=== PATIENT | male | born 1950 | race Caucasian/White ===

== ENCOUNTER 2019-02-01 19:19 | Inpatient (IN) ==
[2019-02-01] MEDS ORDERED: NS 1,000 ML IV ONE ×2 (19:54→20:06)
[2019-02-01] MEDS ORDERED: ZOSYN 3.375 GM in NS 50 ML IV ONE (19:54)
[2019-02-01] MEDS ORDERED: VANCOMYCIN 1 GM/NS 1 GM/250 ML IVPB IV ONE (19:54)
[2019-02-01 20:12] LABS: INR 1.09; PTT 27.4 Seconds (22.3-41.8)
[2019-02-01 20:13] LABS: ALLEN TEST YES; BE 1.3 mmoll (-3.0-3.0); BLOOD TYPE ARTERIAL; HCO3-(ACT) 25.9 mmoll (20.0-26.0); METHB 0.3 % (0.0-1.5); MODALITY ROOM AIR; O2(CT) 13.9 mL/dL (15.0-23.0); O2HB 93.1 % (95.0-99.0); PCO2(98.6) 34 mmHg (35-45); PO2(98.6) 63 mmHg (60-100); SAMPLE BLOOD; SAO2 94.4 % (95.0-100.0); THB 10.6 g/dL (11.5-17.4); pH(98.6) 7.47 (7.35-7.45)
[2019-02-01] MEDS ORDERED: TYLENOL PO ONE (20:20)
[2019-02-01 20:24] LABS: BASO# 0.01 X1000 (0.0-0.2); BASO% 0.1 % (0.0-0.8); EOS# 0.02 X1000 (0.0-0.7); EOS% 0.2 % (0.0-10.0); HEMATOCRIT 33.2 % (42.0-52.0); HEMOGLOBIN 10.7 g/dL (14.0-18.0); IMM GRAN# 0.02 X1000 (0.0-0.04); IMM GRAN% 0.2 % (0.0-0.5); LYMPH# 0.44 X1000 (1.2-3.4); LYMPH% 4.3 % (20.5-51.1); MCH 30.7 PG (27-31); MCHC 32.2 g/dL (33-37); MCV 95.4 FL (81-99); MONO# 0.53 X1000 (0.11-0.59); MONO% 5.1 % (1.7-9.3); MPV 11.7 FL (7.4-10.4); NEUT# 9.29 X1000 (1.4-6.5); NEUT% 90.1 % (42.2-75.2); PLT 173 X1000 (130-400); RBC 3.48 XMIL (4.7-6.1); RDW 13.2 % (11.5-14.5); WBC 10.31 X1000 (4.8-10.8)
--- NOTE | 2019-02-01 20:31 | Diag Imaging Result Doc PS360 ---
EXAM: CHEST-1 VIEW HISTORY: sepsis TECHNIQUE: Chest single view COMPARISON: 06/30/2018 FINDINGS: Poor inspiratory effort. Heart is mildly enlarged. Sternal wires are present. Small left pleural effusion versus pleural thickening. No consolidation. The overall appearance of the chest is similar to the prior exam. IMPRESSION: Stable chest. Electronically signed by Orlando Spicer 02/01/2019 8:28 PM
[2019-02-01 20:32] LABS: ALB/GLOB RATIO 1.3; ALBUMIN 3.8 g/dL (3.5-5.0); CALCIUM 8.5 mg/dL (8.8-10.2); CREATININE 4.8 mg/dL (0.7-1.2); MAGNESIUM 1.3 mg/dL (1.5-2.7); POTASSIUM 3.4 mmol/L (3.5-5.1); TOTAL BILIRUBIN 1.86 mg/dL (0.20-1.00); TOTAL PROTEIN 6.7 g/dL (6.3-8.3)
--- NOTE | 2019-02-01 21:29 | Diag Imaging Result Doc PS360 ---
EXAM: CT ABD/PELVIS W/IV CONT ONLY HISTORY: RUQ pain, septic TECHNIQUE: CT abdomen and pelvis with intravenous contrast COMPARISON: None. FINDINGS: There is a tiny left pleural effusion. There are several large stones within the gallbladder. There is also fatty infiltration of the liver. Normal spleen, pancreas, and adrenal glands. There is cortical thinning to each kidney. No hydronephrosis. Moderate atherosclerosis. No aortic aneurysm. No bowel obstruction. No abscess. No ascites. The urinary bladder is mildly distended. Normal prostate. Small iliac nodes. IMPRESSION: 1.Tiny left pleural effusion with basilar atelectasis versus a tiny infiltrate 2.Cholelithiasis 3.There is fatty infiltration of the liver 4.Cortical renal thinning This exam was performed using automated exposure control, adjustment of mA or kV according to patient size, and/or use of iterative reconstruction technique. Electronically signed by Orlando Spicer 02/01/2019 9:27 PM
[2019-02-01] MEDS ORDERED: HUMULIN R IV ONE (21:41)
--- NOTE | 2019-02-01 22:00 | PROVIDER DOCUMENTATION ---
This chart was entered by Sarah Fuller Scribe, acting as scribe for Abdulaziz Hernandez MD. HPI-Syncope/Dizziness - General Chief Complaint: SEPSIS ALERT - D Stated Complaint: dizzy Time Seen by Provider: 02/01/19 19:53 Source: patient Allergies/Adverse Reactions: Patient Allergies Allergy/AdvReac Type Severity Reaction Status Date / Time No Known Allergies Allergy Verified 06/30/18 11:52 Home Medications: Home Medication List Medication Instructions Recorded Confirmed Last Taken Type Albuterol Sulfate [Proair Hfa] 2 inhaler IH Q4HR 07/01/18 07/01/18 Unknown History Alprazolam 1 mg PO BID 07/01/18 07/01/18 Unknown History Aspirin [Janay Chewable Aspirin] 81 mg PO DAILY 07/01/18 07/01/18 Unknown History Atorvastatin Calcium 80 mg PO DAILY 07/01/18 07/01/18 Unknown History Baclofen 10 mg PO TID PRN 07/01/18 07/01/18 Unknown History Brompheniramine/Pseudoephed/Dm 10 ml PO Q8HR PRN 07/01/18 07/01/18 Unknown History [Szivbotokg-Jadncptlsue-Dv Syr] Calcium Acetate [Phoslo] 3 cap PO TID 07/01/18 07/01/18 Unknown History Furosemide 40 mg PO BID 07/01/18 07/01/18 Unknown History Hum Insulin NPH/Reg Insulin Hm 20 units BID 07/01/18 07/01/18 Unknown History [Novolin 70-30 100 Unit/ml Vial] Lisinopril 10 mg PO DAILY 07/01/18 07/01/18 Unknown History Metoprolol [Lopressor] 25 mg PO BID 07/01/18 07/01/18 Unknown History Mometasone/Formoterol [Dulera 200 2 puff INH BID 07/01/18 07/01/18 Unknown History Mcg/5 Mcg Inhaler] Iron Carbonyl/Ascorbic Acid 1 ea PO BID #60 tab 07/07/18 Unknown Rx [Icar-C] Nystatin 100,000 unit PO 4XDAY #56 dose 07/07/18 Unknown Rx Omeprazole [Prilosec] 40 mg PO BID #60 capsule. 07/07/18 Unknown Rx - History of Present Illness-Syncope/Dizzy Nature of Presenting Problem: 68yom presents to ED cc dizzy, weakness, fever and chills that started during dialysis today. Pt denies N/V/D or cough. Pt does still make some urin and denies dysuria. Pt has hx of DM. ESRD and HTN. Onset/Duration: reports: gradual Timing: reports: still present, changing over time Position/Activity at time of episode: reports: sitting Symptoms prior to episode: reports: none Loss of Consciousness: no loss of consciousness Current Symptoms: reports: fever, chills, weakness, dizzy Similar symptoms previously: reports: previous diagnosis Recently Seen Here or By Another Healthcare Provider: Yes - Dizziness Severity in ED: reports: mild, moderate Dizziness Related Current/Associated Symptoms: reports: weakness, dizzy Any recent trauma/injury?: reports: none Review of Systems - Adult - REVIEW OF SYSTEMS - ADULT Constitutional: reports: see HPI, chills, fever, fatique Eyes: reports: no symptoms reported Ears, Nose, Mouth & Throat: reports: no symptoms reported Cardiovascular: reports: no symptoms reported Respiratory: reports: no symptoms reported Gastrointestinal: reports: see HPI. denies: diarrhea, nausea, vomiting Genitourinary: reports: no symptoms reported Musculoskeletal: reports: no symptoms reported Integumentary: reports: no symptoms reported Neurological: reports: see HPI, dizziness/vertigo. denies: syncope Psychiatric: reports: no symptoms reported Endocrine: reports: no symptoms reported Hematologic/Lymphatic: reports: no symptoms reported Allergic/Immunologic: reports: no symptoms reported All Other Systems: Reviewed and Negative Past History - Adult - PAST MEDICAL HISTORY-ADULT Review of Records: reports: Nursing Assessment Review, Medications Reviewed, Social history reviewed & non-contributory. Major Childhood Illnesses: reports: denies history Cardiovascular: reports: HTN Respiratory: reports: denies history Gastrointestinal: reports: denies history Obstetrical/Gynecological: reports: denies history Genitourinary: reports: dialysis, ESRD, kidney disease Musculoskeletal: reports: denies history Neurological: reports: denies history Psychiatric: reports: denies history Endocrine/Immune: reports: Diabetes Other Conditions: reports: denies history - IMMUNIZATION STATUS Childhood Immunizations: See Nurse Assessment Flu Vaccine: See Nurse Assessment - FAMILY HISTORY Family History: reviewed, not pertinent - SOCIAL HISTORY Smoking: denies Physical Exam-General - PHYSICAL EXAM-ADULT Initial Vital Signs Reviewed: Yes - CONSTITUTIONAL General Appearance: alert. negative: anxious, combative - EYES Eyes: PERRL/EOMI, pink conjunctivae. negative: photophobia - HEAD, EARS, NOSE, MOUTH & THROAT HENMT: normal ENT inspection. negative: moist mucous membranes (dry), angioedema - NECK Neck: non-tender, full range of motion, supple, normal inspection. negative: Brudzinski's sign, carotid bruit, C-spine tenderness - RESPIRATORY Respiratory: chest non-tender, no pleuratic chest pain, no respiratory distress, no accessory muscle use, rhonchi (scattered). negative: crackles, rales, wheezing - CARDIOVASCULAR Cardiovascular: normal peripheral pulses, no edema, no gallop, no JVD, no murmur , tachycardia. negative: regular rate, rhythm, bradycardia - GASTROINTESTINAL (ABDOMEN) Abdominal Exam: normal bowel sounds, non tender. negative: rigid, rebound, tenderness - LYMPHATIC Lymphatic: no adenopathy. negative: striations - MUSCULOSKELETAL Back Exam: normal inspection. negative: swelling Extremity: normal range of motion, normal inspection, other (shunt in left forearm that has good thrill). negative: deformity - SKIN Integumentary: normal color, warm/dry (hot). 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 negative: facial droop, focal weakness - PSYCHIATRIC Psych/Mental Status: normal mood/affect, normal thought content, normal thought process, oriented x 3. negative: disoriented x 3, anxious, disheveled, depressed affect Progress - PLAN OF CARE/RESULTS Progress/Plan/Lab Results: Vital Signs - 8 hr 02/01/19 19:31 Temperature 101.3 F H Pulse Rate 113 H Respiratory Rate 14 Blood Pressure 98/62 O2 Sat by Pulse Oximetry 95 Laboratory Results - last 24 hr 02/01/19 02/01/19 02/01/19 19:26 19:31 19:31 WBC 10.31 RBC 3.48 L Hgb 10.7 L Hct 33.2 L MCV 95.4 MCH 30.7 MCHC 32.2 L RDW Std Deviation 13.2 Plt Count 173 MPV 11.7 H Immature Gran % (Auto) 0.2 Neut % (Auto) 90.1 H Lymph % (Auto) 4.3 L Wilbarger % (Auto) 5.1 Eos % (Auto) 0.2 Baso % (Auto) 0.1 Immature Gran # (Auto) 0.02 Neut # (Auto) 9.29 H Lymph # (Auto) 0.44 L [place] # (Auto) 0.53 Eos # (Auto) 0.02 Baso # (Auto) 0.01 PT INR PTT (Actin FS) Specimen Type Sample Site pH pCO2 pO2 HCO3 Base Excess Oxyhemoglobin ABG O2 Sat (Calculated) ABG O2 Saturation ABG Carboxyhemoglobin ABG Methemoglobin Bong Test A-a O2 Difference Total Hemoglobin Lactate Blood Gas Modality FiO2 % Sodium 137 Potassium 3.4 L Chloride 95 L Carbon Dioxide 23 L Anion Gap 19 BUN 26 H Creatinine 4.8 H Estimated GFR/1.73 m2 12 BUN/Creatinine Ratio 5 Glucose 339 H POC Glucose 353 H D Calculated Osmolality 292 Calcium 8.5 L Magnesium 1.3 L Total Bilirubin 1.86 H AST 479 H ALT 307 H Alkaline Phosphatase 378 H Creatine Kinase 64 Troponin T Total Protein 6.7 Albumin 3.8 Globulin 2.9 Albumin/Globulin Ratio 1.3 02/01/19 02/01/19 02/01/19 19:31 19:31 19:53 WBC RBC Hgb Hct MCV MCH MCHC RDW Std Deviation Plt Count MPV Immature Gran % (Auto) Neut % (Auto) Lymph % (Auto) Wilbarger % (Auto) Eos % (Auto) Baso % (Auto) Immature Gran # (Auto) Neut # (Auto) Lymph # (Auto) Wilbarger # (Auto) Eos # (Auto) Baso # (Auto) PT 15.0 INR 1.09 PTT (Actin FS) 27.4 Specimen Type ARTERIAL Sample Site R RADIAL pH 7.47 H pCO2 34 L pO2 63 HCO3 25.9 Base Excess 1.3 Oxyhemoglobin 93.1 L ABG O2 Sat (Calculated) 13.9 L ABG O2 Saturation 94.4 L ABG Carboxyhemoglobin 1.10 ABG Methemoglobin 0.3 Bong Test YES A-a O2 Difference 44.0 Total Hemoglobin 10.6 L Lactate 3.40 H Blood Gas Modality ROOM AIR FiO2 % 21.0 Sodium Potassium Chloride Carbon Dioxide Anion Gap BUN Creatinine Estimated GFR/1.73 m2 BUN/Creatinine Ratio Glucose POC Glucose Calculated Osmolality Calcium Magnesium Total Bilirubin AST ALT Alkaline Phosphatase Creatine Kinase Troponin T 0.029 Total Protein Albumin Globulin Albumin/Globulin Ratio Orders Category Date Time Status Cardiac Monitoring DIRECTED Care 02/01/19 19:53 Active IV Insertion ORDERED Care 02/01/19 19:53 Completed Notify MD of + Sepsis Screen NOW Care 02/01/19 19:53 Active Notify Physician As Ordered Care 02/01/19 19:53 Active Straight Catheterization ORDERED Care 02/01/19 20:06 Active CHEST-1 VIEW [RAD] Stat Exams 02/01/19 19:[address] ABD/PELVIS W/IV CONT ONLY [CT] Stat Exams 02/01/19 20:44 Completed ABG [RESP] Routine Lab 02/01/19 19:53 Completed BLOOD CULTURE [BLDCUL] Stat Lab 02/01/19 19:40 Results CBC WITH DIFF [HEME] Stat Lab 02/01/19 19:31 Completed CK PROFILE [SP CHEM] Stat Lab 02/01/19 19:31 Completed COMPREHENSIVE METABOLIC PANEL [CHEM] Stat Lab 02/01/19 19:31 Completed LACTATE, PLASMA [CHEM] Lab 02/01/19 20:00 Uncollected LACTATE, PLASMA [CHEM] Lab 02/01/19 23:00 Uncollected LACTATE, PLASMA [CHEM] Lab 02/02/19 02:00 Uncollected MAGNESIUM [CHEM] Stat Lab 02/01/19 19:31 Completed PROTIME WITH INR [COAG] Stat Lab 02/01/19 19:31 Completed PTT [COAG] Stat Lab 02/01/19 19:31 Completed TROPONIN T Stat Lab 02/01/19 19:31 Completed URINALYSIS W/POSS RFLX CULT [URINALYSIS] Stat Lab 02/01/19 19:53 Uncollected 0.9% Sodium Chloride Inj [Ns] 1,000 ml Med 02/01/19 19:54 Discontinued IV 999 mls/hr 0.9% Sodium Chloride Inj [Ns] 1,000 ml Med 02/01/19 20:06 Discontinued IV 999 mls/hr Acetaminophen [Tylenol] Med 02/01/19 20:20 Discontinued 1,000 mg PO NOW ONE Insulin Human Regular [Humulin R] Med 02/01/19 21:41 Discontinued 10 unit IV NOW ONE Piperacillin/Tazobactam [Zosyn] 3.375 gm Med 02/01/19 19:54 Discontinued 0.9% Sodium Chloride Inj [Ns] 50 ml IV NOW Vancomycin 1 gm/Ns Med 02/01/19 19:54 Discontinued 1 gm in 250 ml IV NOW Oxygen Device Stat Oth 02/01/19 19:53 Completed EKG [EKG] Stat Ther 02/01/19 19:21 Ordered Result Diagrams: 02/01/19 19:31 02/01/19 19:31 - REASSESSMENT Reassessment #1 Time Reassessed: 21:56 Status: improving (Better with IVF, givne Vanco/Zosyn for sepsis. Patient likely has cholecystitis. Patient meets criteria for severe sepsis, but is not in septic shock, and lactate is less than 4, so the 30ml/kg bolus is not indicated at this time. Also given Insulin for hyperglycemia) - EKG 1 Time of EKG reading by physician:: 19:26 EKG Read and Signed by:: Abdulaziz Hernandez EKG Interpretation (*Must complete 3 of following elements*): Abnormal (inferior infarct age undetermined ST & T wave abnormality consider lateral ischemia) Rate: 112 Rhythm: sinus tachycardia QRS: normal [place] Interval: normal - XRAY 1 XRAY: Bilateral XRAY Study: Chest Impression: See EMR Report (IMPRESSION: Stable chest. Electronically signed by Orlando Spicer 02/01/2019 8:28 PM) - CT/MRI 1 CT Study: Abdomen, Pelvis Impression: See EMR Report (IMPRESSION: 1.Tiny left pleural effusion with basilar atelectasis versus a tiny infiltrate 2.Cholelithiasis 3.There is fatty infiltration of the liver 4.Cortical renal thinning This exam was performed using automated exposure control, adjustment of mA or kV according to patient size, and/or use of iterative reconstruction technique. Electronically signed by Orlando Spicer 02/01/2019 9:27 PM) - CONSULTS/PCP/HOSPITALIST Notification #1 *Consult/PCP/Hospitalist*: Marvin Time Discussed: 21:57 Reason/Comments: He'll consult Gutierrez in am, wants me to call surgeon now Consult Disposition: Will see in ED #2 Consult: Sean Time Discussed: 21:57 Consult Disposition: other (Will see in patient in consultation) Departure - Departure Date of Disposition Decision: 02/01/19 Time of Disposition Decision: 21:59 DIAGNOSIS: Severe sepsis with acute organ dysfunction, Type 2 diabetes mellitus with hyperglycemia, with long-term current use of insulin, ESRD on hemodialysis Cholecystitis with cholelithiasis Qualifiers: Cholelithiasis location: gallbladder Cholecystitis acuity: acute Biliary obstru ction: without biliary obstruction Qualified Code(s): K80.00 - Calculus of gallbladder with acute cholecystitis without obstruction Disposition: ADMITTED INPATIENT 09 Certified Medical Emergency: Emergent Condition: Fair Referrals and Follow-Ups: Fernando Akhtar MD [Primary Care Provider] - - Critical Care Note This patient required my direct & personal management of CC.: Yes Total Time (mins): 45 ([facility] system in peril) Critical Care Statement: This patient required my direct personal management to treat or rule out processes, the absence of which, could potentiallly result in sudden, clinically significant life or limb threatening deterioration. Attestation - Physician/ DEANDRE Attestation Patient care was provided by Advanced Practice Provider:: No The physician spent face to face time with patient:: Yes Advanced Practice Provider documentation review:: Supervising physician onsite and consulted in the evaluation and care of this patient. The physician did have a face to face encounter with the patient. This chart was documented by the indicated scribe, (Sarah Fuller Scribe) and accurately reflects the services I performed and decisions made by me, Abdulaziz Hernandez MD, as attested by the provider's signature.
[2019-02-02] MEDS: ZOSYN 2.25 GM in NS 50 ML IV SCH ×3 (01:55→18:56)
[2019-02-02] MEDS: DUONEB (A & A) INH PRN ×4 (03:15→23:15)
[2019-02-02 03:44] LABS: BASO# 0.01 X1000 (0.0-0.2); BASO% 0.1 % (0.0-0.8); EOS# 0.07 X1000 (0.0-0.7); EOS% 0.7 % (0.0-10.0); HEMATOCRIT 29.7 % (42.0-52.0); HEMOGLOBIN 9.3 g/dL (14.0-18.0); IMM GRAN# 0.02 X1000 (0.0-0.04); IMM GRAN% 0.2 % (0.0-0.5); LYMPH# 0.91 X1000 (1.2-3.4); LYMPH% 9.7 % (20.5-51.1); MCH 30.3 PG (27-31); MCHC 31.3 g/dL (33-37); MCV 96.7 FL (81-99); MONO# 0.56 X1000 (0.11-0.59); NEUT# 7.78 X1000 (1.4-6.5); NEUT% 83.3 % (42.2-75.2); PLT 156 X1000 (130-400); RBC 3.07 XMIL (4.7-6.1); RDW 13.2 % (11.5-14.5); WBC 9.35 X1000 (4.8-10.8)
[2019-02-02 04:23] LABS: CALCIUM 7.8 mg/dL (8.8-10.2); POTASSIUM 3.4 mmol/L (3.5-5.1)
[2019-02-02 04:32] LABS: CREATININE 5.5 mg/dL (0.7-1.2)
[2019-02-02] MEDS: HUMULIN R SUBQ SCH ×4 (06:32→21:55)
--- NOTE | 2019-02-02 07:14 | EKG Report ---
Test Performed on : 02/01/2019 7:24:55 PM Test Reason : DIZZINESS Blood Pressure : / mmHG Vent. Rate : 112 BPM Atrial Rate : 112 BPM P-R Int : 172 ms QRS Dur : 094 ms QT Int : 328 ms P-R-T Axes : 011 -05 129 degrees QTc Int : 447 ms Sinus tachycardia. Inferior infarct , age undetermined ST & T wave abnormality, consider lateral ischemia Abnormal ECG When compared with ECG of 05-JUL-2018 07:14, premature ventricular complexes. are no longer present Inferior infarct is now present T wave inversion more evident in Lateral leads Unconfirmed Result
--- NOTE | 2019-02-02 07:59 | Diag Imaging Result Doc PS360 ---
US ABDOMEN-COMPLETE - 02/02/2019 INDICATION: abdominal pain COMPARISON: CT from 02/01/2019 FINDINGS: The gallbladder is packed with shadowing gallstones. No surrounding free fluid. Common bile duct measures 6 mm. The pancreas is mostly obscured. The liver, spleen, and both kidneys are normal. Aorta, IVC, and main portal vein are patent. The spleen measures 11.6 x 4.5 cm. IMPRESSION: Gallbladder packed with gallstones. Electronically signed by Ashish Scott 02/02/2019 7:56 AM
--- NOTE | 2019-02-02 10:33 | HISTORY AND PHYSICAL ---
PRIMARY CARE PHYSICIAN: Dr. Akhtar CHIEF COMPLAINT: Fever, chills, abdominal pain x1 day. HISTORY OF PRESENT ILLNESS: A 68-year-old, morbidly obese male with a history of end-stage renal disease, on hemodialysis on Thursday, , Thursday, diabetes mellitus type 2, hypertension, and coronary artery disease, who presented to the emergency department with a complaint of having fever, chills, and right upper quadrant/epigastric pain after he had dialysis. He states that the pain was worsening, and subsequently he had come to the emergency department. In the ED, he was evaluated. He had imaging done, which did show cholelithiasis, and there was suspicion of possible cholecystitis. Due to his presenting symptoms, he will need admission for further management. At the time of my examination, the patient denied any headache, nausea, vomiting, diarrhea, chest pain, shortness of breath, but complained of right upper quadrant/epigastric pain that was intermittent, and also having fever earlier in the day. PAST MEDICAL HISTORY: Includes diabetes mellitus type 2, end-stage renal disease, hypertension, morbid obesity, hyperlipidemia, coronary artery disease, anemia of chronic disease. PAST SURGICAL HISTORY: Dialysis catheter, coronary bypass. ALLERGIES: No known drug allergies. CURRENT MEDICATIONS: Albuterol inhaler every 4 hours, Xanax 1 mg p.o. b.i.d., aspirin 81 mg p.o. daily, atorvastatin 80 mg p.o. daily, baclofen 10 mg p.o. b.i.d., Lasix 40 mg p.o. b.i.d., Humulin NPH 70/30, 20 units b.i.d. subcutaneously, lisinopril 10 mg p.o. daily, metoprolol 25 mg p.o. b.i.d., omeprazole 40 mg p.o. b.i.d. SOCIAL HISTORY: No history of smoking, alcohol, or illicit drug use. FAMILY HISTORY: No history of coronary disease. REVIEW OF SYSTEMS: A 14-point review of systems is as per HPI, other systems negative. PHYSICAL EXAMINATION: GENERAL: Cooperative, friendly male. He is resting more comfortably now. VITAL SIGNS: Temperature 101.3, pulse 113, respirations 14, blood pressure 98/62. HEENT: Atraumatic, normocephalic. Extraocular movements intact. PERRLA. NECK: No masses. CHEST: Clear to auscultation. CARDIOVASCULAR: Regular rate and rhythm. ABDOMEN: Soft. Right upper quadrant/epigastric tenderness. EXTREMITIES: No edema. NEUROLOGIC: He is awake, alert, oriented x3. GENITOURINARY: No bladder distention. SKIN: Warm. IMAGING AND LABORATORY DATA: WBC is 10.31, hemoglobin 10.7, hematocrit 33.2, platelets 173,000. Sodium 137, potassium 3.4, chloride 95, CO2 is 23, BUN is 26, creatinine 4.8, glucose 339. AST 479, ALT 307, alkaline phosphatase 378. CT of the abdomen and pelvis shows cholelithiasis. ASSESSMENT: A 68-year-old, obese male with history of end-stage renal disease, diabetes mellitus type 2, hypertension, and hyperlipidemia, who had presented to the emergency department with a one- day history of having fever, chills, and abdominal pain after he had dialysis. He was evaluated in the emergency department. He had imaging done, which did show cholelithiasis. Subsequently, he will require admission for further management. 1. Fever, chills. 2. Cholelithiasis with suspected cholecystitis. 3. End-stage renal disease. 4. Diabetes mellitus type 2. 5. Hypertension. PLAN: 1. Will admit the patient to medical floor with telemetry. 2. Will keep the patient n.p.o. 3. Will check blood cultures and start the patient on empiric antibiotics. 4. Will consult General Surgery for further evaluation of symptomatic cholelithiasis. 5. Will consult Nephrology for dialysis. 6. Will monitor blood glucose, and put the patient on glycemic protocol. 7. Will monitor blood pressures and add hypertensive agent. 8. Will put the patient on DVT prophylaxis with SCDs. 9. Will continue to follow and reassess and make further recommendations based on the patient's clinical course. cc: Nirav Wong MD MTDD
--- NOTE | 2019-02-02 14:37 | PROGRESS NOTE ---
DATE: 02/02/2019 SUBJECTIVE: The patient reports feeling fine. Patient reports having had fever last night. Denies any fever or chills now. No abdominal pain. OBJECTIVE: Vital Signs: Temperature 98.5 degrees, heart rate 92, respiratory rate 16, blood pressure. 117/59, O2 saturation 98% on room air. General: This is a morbidly obese, 68-year-old, male lying in bed, in no acute distress. HEENT: Head is normocephalic, atraumatic. Neck: No JVD noted. No carotid bruits. No lymphadenopathy. No thyromegaly. Cardiovascular: S1 and S2 heard. No murmurs, gallops or rubs. Regular rate and rhythm. Respiratory: Clear bilaterally to auscultation. No work of breathing. Not using accessory muscles. Abdomen: Soft. A little bit tender to palpation. The right upper quadrant but there is no signs of peritoneal irritation. Extremities: No clubbing, cyanosis, or edema. Peripheral pulses present in both legs. Neurological: Patient alert oriented x3. Moves 4 extremities. LABORATORY DATA: White cell count 9.35, hemoglobin 9.3, hematocrit 39.7, platelets 156,000. BMP remarkable for potassium 3.4, glucose 203. ASSESSMENT AND PLAN: 1. Fever and chills/cholelithiasis suspecting cholecystitis. Patient came to the emergency department because he was having fever and chills while he was having dialysis. The ultrasound shows cholelithiasis. There is no description for any inflammation of the gallbladder wall. In any case, the patient is on antibiotics. In this case, Zosyn renally dosed. Having all that, this patient has both blood cultures for gram-negative bacteria. So, at this point, we are going to continue with the same management. We will repeat blood cultures. Chest x-ray from before and the day after. We will continue to monitor this patient closely. 2. End-stage renal disease. Patient on dialysis. Dr. Whitley is following this patient. 3. Diabetes mellitus type 2. We will continue with sliding scale insulin and Accu-Cheks before meals and also at bedtime. 4. Hypertension will continue home medications. cc: Ric Gaston MD
[2019-02-02] MEDS ORDERED: FENTANYL ONE (15:42)
[2019-02-02] MEDS ORDERED: QUELICIN (DOSE) ONE (15:43)
[2019-02-02] MEDS ORDERED: XYLOCAINE-MPF 2% ONE (15:43)
[2019-02-02] MEDS ORDERED: DIPRIVAN 1% ONE (15:43)
[2019-02-02] MEDS ORDERED: ROBINUL ONE ×2 (15:43→16:02)
[2019-02-02] MEDS ORDERED: MARCAINE 0.25% PF/EPI 1:200,000 ONE (15:44)
[2019-02-02] MEDS ORDERED: SODIUM CHLORIDE 0.9% ONE (15:44)
[2019-02-02] MEDS ORDERED: LR 1,000 ML ONE (15:44)
[2019-02-02] MEDS ORDERED: STERILE WATER INJ. ONE (16:02)
[2019-02-02] MEDS ORDERED: ZOFRAN ONE (16:02)
[2019-02-02] MEDS ORDERED: NORCURON ONE (16:02)
[2019-02-02] MEDS ORDERED: SODIUM CHLORIDE 0.9% 10 ML ONE (16:31)
[2019-02-02] MEDS ORDERED: NEO-SYNEPHRINE ONE (16:31)
[2019-02-02] MEDS ORDERED: NEOSTIGMINE ONE (16:32)
[2019-02-02] MEDS ORDERED: BRIDION ONE (16:56)
[2019-02-02] MEDS ORDERED: OFIRMEV 1000 MG/ISOTONIC SOLN 1,000 MG/100 ML BOTTLE ONE (17:42)
[2019-02-02] MEDS: MORPHINE ONE ×3 (17:50→18:00)
[2019-02-02] MEDS: NORCO-10 PO PRN ×2 (18:55→23:59)
[2019-02-02] MEDS: NS 1,000 ML IV SCH (19:00)
[2019-02-02] MEDS: PERIDEX MT SCH (20:53)
--- NOTE | 2019-02-02 22:21 | OPERATIVE NOTE ---
PROCEDURE DATE: 02/02/2019 PREOPERATIVE DIAGNOSIS: Acute cholecystitis with cholelithiasis. POSTOPERATIVE DIAGNOSIS: Acute cholecystitis with cholelithiasis. PRINCIPAL PROCEDURE: Laparoscopic cholecystectomy without intraoperative cholangiogram. SURGEON: Krystle Estrada MD. REFINERY OPERATOR COKING: Kenyetta. ANESTHESIA: General in addition to local anesthetic. ESTIMATED BLOOD LOSS: 250 mL. DRAINS: Two #10 flat Bhavesh-Dinh drain right upper quadrant of the abdomen. INDICATIONS: Mr. Ramón Moreira is a 68-year-old morbidly obese white male with end-stage renal disease requiring hemodialysis. He presented to the emergency department with chest and epigastric pain. A CT scan suggested acute cholecystitis as did an ultrasound, and cholecystectomy was recommended. FINDINGS: This was a very difficult case because of the patient's weight but also because the gallbladder was hidden by greater omentum adhesed to it. He had an enlarged fatty infiltrated liver. The gallbladder was chronically inflamed, thick walled and had large stones within it. The triangle of Calot was very difficult to dissect. Because of limited exposure and the inflammation, we were unable to do a cholangiogram, but I stayed close to the gallbladder, and I felt I did it safely. We did leave a drain. DESCRIPTION OF PROCEDURE: The patient was brought to the operating room, placed supine, received general anesthesia and was intubated. Abdomen was prepped and draped within the sterile field. I made a longitudinal incision above the umbilicus with a 15 blade scalpel. Veress needle was introduced through this incision. Pneumoperitoneum was established. I placed an 11 mm trocar through this incision into the abdomen. The camera was placed through this port, and the abdomen was explored for injury. There was none. Three other trocars were placed along the right costal margin under direct vision of the camera. I placed an 11 mm trocar just to the right of the midline and two 5 mm trocars in our midclavicular and anterior axillary lines. Through our most lateral port, I initially had to take down the greater omentum, which was adhesed to the edge of the right lobe of the liver and also encircling the gallbladder. I could not even see the gallbladder initially without some dissection of the greater omentum. We had to place an extra trocar, 11 mm trocar, left side of abdomen so that I could use a fan retractor also for exposure. We slowly but surely got exposure to the underside of the gallbladder. I had to use a pigtail retractor within the fundus of the gallbladder to retract it superiorly along with the right lobe of the liver. I used the fan retractor. I used blunt dissection, and we identified the cystic duct initially. I placed 2 clips proximally and 1 clip distally and divided the cystic duct, identified the cystic artery. A clip was placed distally and 2 proximally. It was divided. I used spatula cautery to remove the gallbladder from the liver bed and then used an endobag to remove the gallbladder through our 11 mm port site. I did leave some SurgiSeal in the gallbladder bed because of some oozing. We did lose 250 mL of blood during our dissection, but we felt that all bleeding was controlled at the end of the procedure. The liver appeared to be well perfused. We thoroughly irrigated out the area of operation. The irrigation was removed with suction. I did leave a 10 flat Bhavesh-Dinh drain in the right upper quadrant. It was brought out through our most lateral 5 mm trocar site. I secured it to the skin with a 2-0 nylon stitch. All trocars were removed under direct vision of the camera. The pneumoperitoneum was allowed to dissipate. I used 0 Vicryl [id number] stitches to reapproximate the fascia at the umbilicus, and I closed all skin with a skin clip medical registrar. Dressings were applied. He tolerated the procedure well with plans for him to go the recovery room and then be readmitted to his room. cc: Krystle Estrada MD
[2019-02-03] MEDS: ZOSYN 2.25 GM in NS 50 ML IV SCH ×3 (01:43→09:44)
[2019-02-03] MEDS: DUONEB (A & A) INH PRN ×2 (03:25→15:22)
[2019-02-03] MEDS ORDERED: NS 2,000 ML MISC PRN (06:13)
[2019-02-03] MEDS ORDERED: TIGHT: 0.2 ML/HR FOR DIALYSIS MISC PRN (06:13)
[2019-02-03] MEDS ORDERED: HEPARIN IV PRN ×2 (06:13→09:30)
[2019-02-03 06:30] LABS: BASO# 0.02 X1000 (0.0-0.2); BASO% 0.2 % (0.0-0.8); EOS% 1.2 % (0.0-10.0); HEMATOCRIT 27.8 % (42.0-52.0); HEMOGLOBIN 8.5 g/dL (14.0-18.0); IMM GRAN# 0.02 X1000 (0.0-0.04); IMM GRAN% 0.2 % (0.0-0.5); LYMPH# 0.56 X1000 (1.2-3.4); LYMPH% 6.7 % (20.5-51.1); MCH 30.2 PG (27-31); MCHC 30.6 g/dL (33-37); MCV 98.9 FL (81-99); NEUT# 7.15 X1000 (1.4-6.5); NEUT% 85.7 % (42.2-75.2); PLT 154 X1000 (130-400); RBC 2.81 XMIL (4.7-6.1); RDW 13.3 % (11.5-14.5); WBC 8.35 X1000 (4.8-10.8)
[2019-02-03] MEDS: HUMULIN R SUBQ SCH ×4 (06:34→22:25)
[2019-02-03 06:47] LABS: CALCIUM 7.1 mg/dL (8.8-10.2); CREATININE 7.2 mg/dL (0.7-1.2)
[2019-02-03 07:13] LABS: MONO 2 % (1-9); SEGS 96 % (42-75)
[2019-02-03] MEDS: PERIDEX MT SCH ×2 (08:22→22:25)
[2019-02-03] MEDS: NS 1,000 ML IV SCH ×2 (09:45→18:48)
[2019-02-03] MEDS ORDERED: TESSALON PO PRN (10:37)
[2019-02-03] MEDS ORDERED: MAXIPIME 1 GM in NS 50 ML IV SCH (11:15)
--- NOTE | 2019-02-03 15:34 | PROGRESS NOTE ---
DATE: 02/03/2019 SUBJECTIVE: The patient reports feeling fine now but he has spiked fever this morning at 100.4 degrees. No other complaints noted. OBJECTIVE: Vital signs: Temperature 100.4 degrees, heart rate 114, respiratory rate 20, blood pressure 100/50, O2 saturation 100% on 2 L nasal cannula. General: This is a 68-year-old male, lying in bed, in no acute distress. Cardiovascular: S1, S2 heard. No murmurs, gallops, or rubs. Regular rate and rhythm. Respiratory: Clear bilaterally to auscultation. No work of breathing. Not using accessory muscles. Abdomen: Soft. Nondistended. Tender to palpation in the right upper quadrant. Extremities: No clubbing, cyanosis, or edema. Peripheral pulses present in both legs. Neurological: Patient alert and oriented x3. Moves 4 extremities. LABORATORY DATA: Reviewed and white cell count is normal. ASSESSMENT AND PLAN: 1. Acute cholecystitis status post laparoscopic cholecystectomy. At this point, the patient is still spiking fever. We have consulted ID, Dr. Andrés Dalton, who has changed antibiotics from Zosyn to cefepime. We will continue with the same management. We are going to check blood cultures tomorrow, make sure that patient's infection is resolving. He had a laparoscopic cholecystectomy. At this point, we will continue with the same management. 2. End-stage renal disease. Patient is receiving dialysis. Dr. Whitley following this patient. 3. Diabetes mellitus type 2. We will continue with sliding scale insulin and Accu-Chek before meals and also at bedtime. 4. Hypertension. We will continue with home medications. 5. Disposition. On this patient with negative bacteremia, we will repeat blood cultures tomorrow. We will continue to monitor this patient closely. cc: Ric Gaston MD MTDD
[2019-02-03] MEDS ORDERED: MAXIPIME 1 GM in NS 50 ML IV ONE (16:00)
--- NOTE | 2019-02-03 16:32 | NEPHROLOGY PROGRESS NOTE ---
DATE: 02/03/2019 SUBJECTIVE: He had a cholecystectomy yesterday. He has a drain in place. He still is "sore". No vomiting, nausea. He has not had a bowel movement yet. OBJECTIVE: Vital Signs: Blood pressure 92/50, heart rate 114, respirations 20, temperature 100.4 degrees. Generally: Obese white male, no acute distress. Skin: Warm and dry. Conjunctivae are pink. Oropharynx is moist. Neck: Neck veins are not distended. Heart: Regular. No gallops. No rubs. Lungs: Equal. No crackles. Abdomen: Soft, nontender. There is a SARITA drain in the right upper quadrant. Bowel sounds are present. Extremities: Trace edema. No clubbing or cyanosis. IMPRESSION: 1. Chronic kidney disease 5D. Dialysis today using his routine outpatient prescription except for change to a 3K bath. Electrolytes/acid base in target. 2. Anemia. Hemoglobin 8.5 following surgery. Follow without transfusion at this time. 3. Gram-negative sepsis. ID and sensitivity are pending. Continue Tee. cc: Arthur Whitley MD
--- NOTE | 2019-02-03 18:34 | PROGRESS NOTE ---
DATE: 02/03/2019 SUBJECTIVE: Mr. Moreira is postop day 1 from laparoscopic cholecystectomy without intraoperative cholangiogram. It was a difficult dissection because of chronic inflammation and acute inflammation. We left a drain. The drain is draining no bile, but serosanguineous fluid. Clinically, he states he feels better. He did get dialyzed today. His white blood cell count is normal. Hematocrit is 28%. PLAN: We will continue his SARITA drain for now. He has been given liquids as a diet. cc: Krystle Estrada MD
--- NOTE | 2019-02-03 18:47 | INFECTIOUS DISEASE CONSULT REP ---
DATE: 02/03/2019 CONCLUSION: The patient has a gram-negative meagan bacteremia which most likely originates from his acute cholecystitis. RECOMMENDATIONS: I have switched the patient from Zosyn to cefepime pending culture results. DISCUSSION: The patient told me that he, approximately 3 days ago, started having chills and epigastric pain. He came to the hospital. On the ultrasound of the abdomen, the patient was found to have a gallbladder packed with stones. CT scan of the abdomen showed cholelithiasis, fatty liver, renal cortical thinning and a tiny left pleural effusion with basilar atelectasis versus a tiny infiltrate. The CBC shows a white count of 8350, hemoglobin is 8.5, platelet count is 154,000, creatinine is 7.2. GFR is 8. The patient is status post laparoscopic cholecystectomy. PAST MEDICAL HISTORY/REVIEW OF SYSTEMS: Eyes and Ears: The patient does not have any trouble seeing or hearing. Neck: No stiffness. Respiratory: No cough or shortness of breath. Cardiac: No chest pain or palpitations. GI: The patient was having epigastric pain, but he did not have any nausea or vomiting. He normally passes his stools every other day. Urinary tract: The patient has a decreased frequency of urinating most likely because he has end-stage renal disease and he is on dialysis, but he told me when he does urinate he passes a lot of urine. Bones, joints, muscles: No joint swelling or muscle aching. Endocrine: Patient is diabetic but not but he does not have thyroid disease. PREVIOUS HOSPITALIZATIONS AND OPERATIONS: He has had surgery on his left arm to form an AV fistula. He has had coronary artery bypass grafting. He has had a cyst removed from his left foot. MEDICAL DISEASES: Positive for end-stage renal disease, diabetes mellitus, hypertension, and coronary artery disease. Infectious disease history is negative for pneumonia and UTI. Also, hyperlipidemia and gastroesophageal reflux disease. FAMILY HISTORY: Positive for diabetes mellitus and cancer. SOCIAL HISTORY: [place] . He lives alone. He does not have any pets. He does not smoke cigarettes, drink alcoholic beverages or abuse drugs. He is a retired welder machine operator. ALLERGIES: He has no known drug allergies. MEDICATIONS: Taken at home include ProAir, alprazolam, atorvastatin, furosemide, insulin, hydrocodone, lisinopril, metoprolol and Prilosec. PHYSICAL EXAMINATION: Vital Signs: Temperature maximum was 100.4, pulse is 114, respirations 20, blood pressure 92/50. The patient weighs 280 pounds. General: This is an obese, elderly male. He is status post laparoscopic cholecystectomy performed. Head/eyes/ears/nose/throat: He can hear my spoken words and see near objects. There is no drainage from the nose or ears. Neck: No meningismus. Lungs: Clear to auscultation. Cardiovascular: Regular heart rate. Abdomen: Soft. It is nontender to light palpation. All the abdominal incisions have a dressing on them. The dressings are intact. Neurologic: The patient is awake. He can move his extremities. There is no tremor. His memory as regarding his medical history seemed to be intact. Integument: No rash noted. Thank you for the consult. cc: Andrés Dalton MD
[2019-02-03] MEDS: NORCO-10 PO PRN (22:25)
[2019-02-04 06:23] LABS: BASO# 0.01 X1000 (0.0-0.2); BASO% 0.1 % (0.0-0.8); EOS# 0.39 X1000 (0.0-0.7); EOS% 4.6 % (0.0-10.0); HEMATOCRIT 27.3 % (42.0-52.0); HEMOGLOBIN 8.3 g/dL (14.0-18.0); IMM GRAN# 0.03 X1000 (0.0-0.04); IMM GRAN% 0.4 % (0.0-0.5); LYMPH# 1.06 X1000 (1.2-3.4); LYMPH% 12.6 % (20.5-51.1); MCH 30.3 PG (27-31); MCHC 30.4 g/dL (33-37); MCV 99.6 FL (81-99); MONO# 0.82 X1000 (0.11-0.59); MONO% 9.7 % (1.7-9.3); MPV 11.4 FL (7.4-10.4); NEUT# 6.13 X1000 (1.4-6.5); NEUT% 72.6 % (42.2-75.2); PLT 164 X1000 (130-400); RBC 2.74 XMIL (4.7-6.1); RDW 13.7 % (11.5-14.5); WBC 8.44 X1000 (4.8-10.8)
[2019-02-04 06:41] LABS: CALCIUM 7.4 mg/dL (8.8-10.2); POTASSIUM 3.4 mmol/L (3.5-5.1)
[2019-02-04 06:42] LABS: CREATININE 5.7 mg/dL (0.7-1.2)
[2019-02-04] MEDS: HUMULIN R SUBQ SCH ×4 (06:56→22:08)
[2019-02-04] MEDS: PERIDEX MT SCH ×2 (09:39→22:07)
[2019-02-04] MEDS ORDERED: EPOGEN SUBQ ONE (09:49)
--- NOTE | 2019-02-04 10:56 | PROGRESS NOTE ---
DATE: 02/04/2019 Mr. Moreira is now postop day 2 from a laparoscopic cholecystectomy without intraoperative cholangiogram. I left a SARITA drain at the time of surgery. It is draining serosanguineous fluid. No bile. He is sitting up. Clinically, he says he feels better. He is tolerating liquids, and will advance his diet to a renal diet. He is receiving IV antibiotics for cultures positive for Klebsiella pneumonia. cc: Krystle Estrada MD
--- NOTE | 2019-02-04 16:42 | PROGRESS NOTE ---
DATE: 02/04/2019 SUBJECTIVE: Patient reports feeling fine. Denies any fever or chills but last night, around 11 p.m., he had a 100.5 fever. OBJECTIVE: Vital Signs: Temperature 98.1 degrees, heart rate 89, respiratory rate 17, blood pressure 115/66, O2 saturation 92% on 2 L nasal cannula. General Examination: This is a 68-year- old, male, lying in bed, in no acute distress. Cardiovascular Examination: S1 and S2 heard. No murmurs, gallops, or rubs. Regular rate and rhythm. Respiratory Examination: Clear bilaterally to auscultation. No work of breathing or using accessory muscles. Abdomen: A little bit tender to palpation in the right lower quadrant. No signs of peritoneal irritation. Extremities: No clubbing, cyanosis, or edema. Peripheral pulses present in both legs. Neurological Examination: The patient is alert and oriented x3. Moves 4 extremities. ASSESSMENT AND PLAN: 1. Acute cholecystitis, status post laparoscopic cholecystectomy. The patient is clinically better. Spiked a fever yesterday, last night. Dr. Dalton has decided to continue with cefepime. Blood culture has been drawn today and the plan is to keep this patient until Thursday to see that blood cultures are negative. Then he will be discharged on Levaquin orally. 2. End-stage renal disease. Patient is receiving usual dialysis. Dr. Whitley is monitoring this patient. 3. Diabetes mellitus type 2. We will continue with sliding scale insulin. Accu-Chek before meals and also at bedtime. 4. Hypertension. Blood pressure is under control. We will continue with the same management. 5. Disposition. As we mentioned before, we will continue to monitor this patient closely. We will keep this patient until next Thursday. If blood cultures are negative, we will discharge him that day. cc: Ric Gaston MD
--- NOTE | 2019-02-04 17:11 | INFECTIOUS DISEASE PROGRESS NO ---
DATE: 02/04/2019 PRESENT ILLNESS: The patient has a Klebsiella bacteremia which most likely originated from his acute cholecystitis. MEDICATIONS: The patient was on Zosyn, and now he is on cefepime 1 g IV after each hemodialysis. PHYSICAL EXAMINATION: Vital Signs: Temperature is 99.5 degrees, pulse 108, respirations 22, blood pressure 125/57. General: This is an obese, elderly male. He is in no acute distress. Head/eyes/ears/nose/throat: He can hear my spoken words and see near objects. He does not have any white coating on his tongue. Neck: He is not having any neck pain when he moves his head or neck. Lungs: Clear to auscultation. Cardiovascular: Regular heart rate. Abdomen: The patient's abdomen is soft. Bowel sounds are present. All the small incisions have a dressing on them. He has a drain in the right upper part of the abdomen. Extremities: Patient has an AV fistula in his left arm, which is what he is dialyzed with. Neurologic: The patient is alert. He can move his extremities. There is no tremor. He is able to ambulate. Integument: No rash. COMORBIDITIES: The patient has end-stage renal disease and he is on hemodialysis, diabetes mellitus and obesity. ASSESSMENT AND PLAN: The patient is bacteremic with Klebsiella which originated from the patient's acute cholecystitis. We have ordered repeat blood cultures today, and if they remain negative, then the patient will be discharged on February 07 on Levaquin 250 mg oral daily for a total of 14 days. Day 1 of treatment with the patient's antibiotics will be the first day that the repeat blood cultures are sterile. cc: Andrés Dalton MD
--- NOTE | 2019-02-04 17:17 | NEPHROLOGY PROGRESS NOTE ---
DATE: 02/04/2019 SUBJECTIVE: He states he is feeling very well today. He has less abdominal tenderness. He is ready to eat more and get out of bed. OBJECTIVE: Vital Signs: Blood pressure 125/57, heart rate 108, respirations 22, temperature 99.5 degrees, T-max 100.5 degrees. General: No acute distress. Skin: Warm and dry. Neck: Neck veins are not visible. Heart: Regular. No gallops. Lungs: Equal. No crackles. Abdomen: Mildly tender. Nondistended. Bowel sounds are present. Extremities: No edema, clubbing, or cyanosis. IMPRESSIONS: 1. Chronic kidney disease 5D. He had his routine dialysis yesterday. Electrolytes, acid-base, and volume status all acceptable. 2. Anemia. Hemoglobin has stabilized to 8.3. He does not meet criteria for transfusion. We will continue his erythropoietin while he is an inpatient. No other changes. cc: Arthur Whitley MD
[2019-02-05] MEDS: HUMULIN R SUBQ SCH ×4 (06:01→22:04)
[2019-02-05] MEDS ORDERED: NS 2,000 ML MISC PRN (06:07)
[2019-02-05] MEDS ORDERED: HEPARIN IV PRN (06:07)
[2019-02-05 06:32] LABS: CALCIUM 7.6 mg/dL (8.8-10.2); POTASSIUM 3.5 mmol/L (3.5-5.1)
[2019-02-05 06:36] LABS: BASO% 0.4 % (0.0-0.8); EOS% 6.7 % (0.0-10.0); HEMOGLOBIN 8.5 g/dL (14.0-18.0); IMM GRAN% 0.6 % (0.0-0.5); LYMPH# 0.95 X1000 (1.2-3.4); LYMPH% 11.8 % (20.5-51.1); MCHC 30.4 g/dL (33-37); MCV 98.9 FL (81-99); MONO# 0.62 X1000 (0.11-0.59); MONO% 7.7 % (1.7-9.3); MPV 10.9 FL (7.4-10.4); NEUT# 5.85 X1000 (1.4-6.5); NEUT% 72.8 % (42.2-75.2); PLT 203 X1000 (130-400); RBC 2.83 XMIL (4.7-6.1); RDW 13.4 % (11.5-14.5); WBC 8.04 X1000 (4.8-10.8)
[2019-02-05 06:37] LABS: BASO# 0.03 X1000 (0.0-0.2); EOS# 0.54 X1000 (0.0-0.7); IMM GRAN# 0.05 X1000 (0.0-0.04)
[2019-02-05 06:40] LABS: CREATININE 7.7 mg/dL (0.7-1.2)
--- NOTE | 2019-02-05 14:10 | PROGRESS NOTE ---
DATE: 02/05/2019 SUBJECTIVE: Patient reports feeling fine. Denies any fever or chills. Here in the computer last time he had fever was 2 days ago at night. OBJECTIVE: Vital Signs: Temperature 99.1, heart rate 89, respiratory rate 18, blood pressure 119/67, O2 saturation 96% on 2 L nasal cannula. General: This is a chronically ill-appearing 68- year-old male lying in bed in no acute distress. Cardiovascular: S1, S2 heard. No murmurs, gallops, or rubs. Regular rate and rhythm. Respiratory: Clear bilaterally to auscultation. No work of breathing or using accessory muscles. Abdomen: Soft, a little bit distended but mildly tender to palpation in the right upper quadrant, no signs of peritoneal irritation. ASSESSMENT AND PLAN: 1. Acute cholecystitis status post laparoscopy cholecystectomy. Clinically continues to improve. No fever the last 48 hours. Patient is on cefepime right now. Blood cultures isolated Klebsiella pneumonia so will continue with the same antibiotic and if Thursday blood cultures negative will discharge this patient on Levaquin. 2. End-stage renal disease on dialysis Dr. Whitley following this patient. 3. Diabetes mellitus type 2. Will continue with sliding scale insulin, Accu-Chek before meals and also bedtime. 4. Hypertension. Blood pressure is under control. We will continue with same management. 5. Disposition. As we mentioned before, if blood cultures negative Thursday patient will be discharged. cc: Ric Gaston MD
[2019-02-05] MEDS: PERIDEX MT SCH ×2 (14:49→22:04)
--- NOTE | 2019-02-05 19:04 | NEPHROLOGY PROGRESS NOTE ---
DATE: 02/05/2019 SUBJECTIVE: He is on dialysis currently. His drain has been removed. He is eating okay and he has been out of bed. No shortness of breath. States he is feeling better. OBJECTIVE: Vital Signs: Blood pressure 122/8, heart rate 93, respiration 18, afebrile. T-max 99.5 degrees. General: No acute distress. Skin: Warm and dry. Eyes: Conjunctivae are pink. Neck: Neck veins are not distended. Heart: Regular. Lungs: Equal. No crackles. Abdomen: Soft, nontender. Bowel sounds present. Extremities: No edema, clubbing or cyanosis. IMPRESSION: 1. Chronic kidney disease 5 D. Hemodialysis today. She is currently receiving 3 potassium bath with 2 liter ultrafiltration volume. Blood pressure is in target. 2. Electrolytes/acid base in target. 3. Anemia is below target, but stable. He received a single dose of erythropoietin. cc: Arthur Whitley MD
[2019-02-06 06:09] LABS: CALCIUM 8.5 mg/dL (8.8-10.2); POTASSIUM 3.3 mmol/L (3.5-5.1)
[2019-02-06 06:11] LABS: BASO# 0.03 X1000 (0.0-0.2); BASO% 0.4 % (0.0-0.8); EOS# 0.44 X1000 (0.0-0.7); EOS% 6.1 % (0.0-10.0); HEMATOCRIT 29.3 % (42.0-52.0); HEMOGLOBIN 8.8 g/dL (14.0-18.0); IMM GRAN% 1.4 % (0.0-0.5); LYMPH# 0.96 X1000 (1.2-3.4); LYMPH% 13.4 % (20.5-51.1); MCH 29.7 PG (27-31); MONO# 0.58 X1000 (0.11-0.59); MONO% 8.1 % (1.7-9.3); MPV 10.7 FL (7.4-10.4); NEUT# 5.08 X1000 (1.4-6.5); NEUT% 70.6 % (42.2-75.2); PLT 231 X1000 (130-400); RBC 2.96 XMIL (4.7-6.1); RDW 13.6 % (11.5-14.5); WBC 7.19 X1000 (4.8-10.8)
[2019-02-06 06:14] LABS: CREATININE 5.3 mg/dL (0.7-1.2)
[2019-02-06] MEDS: HUMULIN R SUBQ SCH ×4 (07:24→20:50)
[2019-02-06] MEDS: PERIDEX MT SCH ×2 (09:03→20:50)
--- NOTE | 2019-02-06 11:33 | INFECTIOUS DISEASE PROGRESS NO ---
DATE: 02/06/2019 PRESENT ILLNESS: The patient has a Klebsiella bacteremia, which I think originated from his acute cholecystitis. MEDICATIONS: The patient currently is on cefepime 1 gram after each hemodialysis. PHYSICAL EXAMINATION: Vital Signs: Temperature is 98.8 degrees, pulse 79, respirations 17, blood pressure 148/76. General: This is an obese, elderly male. He is in no acute distress. HEENT: He can hear my spoken words and see near objects. He does not have any white patches on his tongue. Neck: He does not have any neck pain when he moves his neck or head. Lungs: Clear to auscultation. Cardiovascular: Heart rate is regular. Abdomen: Soft and nontender. The patient's incisions and drain site are all intact. There is no erythema and no drainage. The stephania are still in. Extremities: The patient has an AV fistula in the left arm, through which he is dialyzed. The fistula site is not erythematous or draining. Neurologic: The patient is alert. He ambulates without difficulty. There is no tremor. LABORATORY DATA: The patient's CBC shows a white count of 7190, hemoglobin 8.8, and platelet count 231,000. Creatinine is 5.3. GFR is 11. Repeat blood cultures are sterile. ASSESSMENT AND PLAN: The patient has a Klebsiella bacteremia. My plan would be to continue for 2 more weeks, cefepime intravenously after each dialysis rather than giving the patient oral Levaquin. COMORBIDITIES: He has end-stage renal disease. He is on hemodialysis. He also is diabetic and is obese. The patient also had cholecystitis, which has been removed by Dr. Estrada. cc: Andrés Dalton MD
--- NOTE | 2019-02-06 11:34 | PROGRESS NOTE ---
DATE: 02/06/2019 SUBJECTIVE: The patient reports feeling fine. Denies any fever or chills. Patient, as per nursing staff, has been helped to sitting in a chair, walking to the bathroom. OBJECTIVE: Vital Signs: Temperature 98.8 degrees, heart rate 80, respiratory rate 20, blood pressure 148/76, O2 saturation 97% on 2 L nasal cannula. General Examination: This is a chronically ill-appearing, 68-year-old, male, lying in bed, in no acute distress. Cardiovascular Examination: S1 and S2 heard. No murmurs, gallops, or rubs. Regular rate and rhythm. Respiratory Examination: Clear bilaterally to auscultation. No work of breathing or using accessory muscles. Abdomen: Soft. A little bit distended but mildly tender to palpation in the right upper quadrant. No signs of peritoneal irritation. Extremities: No clubbing, cyanosis, or edema. Peripheral pulses present in both legs. Neurological Examination: The patient is alert and oriented x3. Moves 4 extremities. ASSESSMENT AND PLAN: 1. Acute cholecystitis, status post laparoscopic cholecystectomy. Clinically, this patient is fine. Not even pain in the right upper quadrant. No fever for the last 3 days. The patient is on cefepime right now. Blood cultures isolated Klebsiella pneumoniae and the new blood cultures are negative so I have talked with Dr. Andrés Dalton today. He is planning to continue with cefepime after dialysis for a couple weeks. The patient can be discharged tomorrow. 2. End-stage renal disease, on dialysis. Dr. Whitley is following this patient. 3. Diabetes mellitus type 2. We will continue with sliding scale insulin and Accu-Chek before meals and also at bedtime. 4. Hypertension. Blood pressure is under control. We will continue with the same medications. 5. Disposition. I think if blood cultures persist to be negative, we will discharge this patient with antibiotics at this time dialysis. Physical therapy and home health consult for physical therapy. cc: Ric Gaston MD
[2019-02-06] MEDS: NORCO-10 PO PRN (21:07)
[2019-02-07 06:17] LABS: BASO# 0.06 X1000 (0.0-0.2); BASO% 0.8 % (0.0-0.8); EOS# 0.53 X1000 (0.0-0.7); HEMATOCRIT 27.8 % (42.0-52.0); HEMOGLOBIN 8.6 g/dL (14.0-18.0); IMM GRAN# 0.26 X1000 (0.0-0.04); IMM GRAN% 3.4 % (0.0-0.5); LYMPH# 1.72 X1000 (1.2-3.4); LYMPH% 22.6 % (20.5-51.1); MCH 30.5 PG (27-31); MCHC 30.9 g/dL (33-37); MCV 98.6 FL (81-99); MONO# 0.58 X1000 (0.11-0.59); MONO% 7.6 % (1.7-9.3); MPV 10.6 FL (7.4-10.4); NEUT# 4.46 X1000 (1.4-6.5); NEUT% 58.6 % (42.2-75.2); PLT 248 X1000 (130-400); RBC 2.82 XMIL (4.7-6.1); RDW 13.4 % (11.5-14.5); WBC 7.61 X1000 (4.8-10.8)
[2019-02-07 06:32] LABS: CALCIUM 8.5 mg/dL (8.8-10.2); POTASSIUM 3.2 mmol/L (3.5-5.1)
[2019-02-07] MEDS: HUMULIN R SUBQ SCH ×2 (06:58→11:08)
[2019-02-07 07:16] LABS: CREATININE 6.8 mg/dL (0.7-1.2)
--- NOTE | 2019-02-07 07:29 | INFECTIOUS DISEASE PROGRESS NO ---
DATE: 02/07/2019 PRESENT ILLNESS: The patient has a Klebsiella bacteremia which I think originated from his acute cholecystitis. MEDICATIONS: The patient currently is on cefepime 1 g IV after each hemodialysis. PHYSICAL EXAMINATION: Vital Signs: Temperature is 97.6 degrees, pulse 76, respirations 16, blood pressure 151/89. General: This is an obese, elderly male. He is in no acute distress. Head, Eyes, Ears, Nose, and Throat: He can hear my spoken words and see near objects. He does not have any white patches on his tongue. Neck: No meningismus. Lungs: Clear to auscultation. Cardiovascular: Regular heart rate. Abdomen: Soft and nontender. The patient's small incision and drain site are not swollen or erythematous or draining. Extremities: The patient has an AV fistula in his left arm through which he is dialyzed. The site does not show erythema or swelling. Neurologic: The patient is alert and he is able to carry on a conversation. He does not have a tremor. LAB DATA: CBC shows a white count of 7610, hemoglobin 8.6, and platelet count 248,000. GFR is 8. There is no creatinine as of this time today. It may be present later. The last creatinine was yesterday at 5.3. The patient's repeat blood cultures are sterile. ASSESSMENT AND PLAN: The patient has Klebsiella bacteremia. I plan for the patient to have cefepime or ceftazidime being given in a dose of 1 g after each dialysis for 2 weeks. I have discussed this with Dr. Whitley and he is going to order the cefepime or ceftazidime to be given after each dialysis for the next 2 weeks. The patient will be followed up as an outpatient by Dr. Estrada who operated on the patient. COMORBIDITIES: The patient has end-stage renal disease and he is on hemodialysis. He also is a diabetic and he is obese. He was admitted to the hospital with acute cholecystitis and he had surgery performed by Dr. Estrada. cc: Andrés Dalton MD
[2019-02-07 07:31] LABS: EOS 8 % (1-10); LYMPHS 20 % (21-51); MONO 4 % (1-9); SEGS 67 % (42-75)
[2019-02-07] MEDS: PERIDEX MT SCH (09:18)
--- NOTE | 2019-02-07 10:04 | NEPHROLOGY PROGRESS NOTE ---
DATE: 02/07/2019 SUBJECTIVE: Mr. Moreira is resting quietly in bed, states that he is feeling much better. OBJECTIVE: Vital Signs: Temperature 97.6 degrees, blood pressure 151/89, heart rate 76, respirations 16. He is on 2 L nasal cannula. Last recorded saturation 98%. He has had 680 in. He has had 350 out to void. He remains on 2 L nasal cannula. Last recorded saturation is 98%. Laboratory Data: Sodium 138, potassium 3.2, chloride 97, CO2 27, BUN 31, creatinine 6.8, glucose is 156. The patient has an anion gap of 14. His calcium is 8.5. White count 7.61, hemoglobin 8.6, hematocrit is 27.8, with a platelet count of 248,000. General: This is a 68-year-old white male. He is currently resting quietly in bed. He appears chronically ill in no acute distress. Skin: Warm and dry. HEENT: Normocephalic, atraumatic. Conjunctiva is pale pink. He has YANELY. Mucous membranes are dry. Neck: Supple. Trachea midline. No evidence of JVD. Cardiovascular: He is regular rate and rhythm. No gallop appreciated. Lungs: Clear to auscultation anteriorly. Equal excursion. His O2 is off at this time. Abdomen: Large, round, soft, nontender. Positive bowel sounds. Genitourinary: Not inspected. Minimal void with dialysis assist. Extremities: He has a fistula to the left forearm. This is good palpable thrill. Extremities: Have no edema. No clubbing or cyanosis. Neurological: He is alert to person and place. ASSESSMENT AND PLAN: 1. Chronic kidney disease stage 5D. Patient is due for hemodialysis in the a.m. We have discussed with patient if he is discharged, he does go to his outpatient clinic at that time for his planned dialysis. 2. Electrolytes and acid-base balance. He continues with hypokalemia with a potassium at 3.2 to be corrected on dialysis in the a.m. 3. Acid-base balance. This is stable. 4. Anemia. This remains stable. 5. Sepsis. Patient remains on renal dosed antibiotics, to continue these antibiotics after discharge. Status post cholecystectomy. I would like to thank you for allowing us to follow with this patient. Dictated by KADEEM Ramirez for Arthur Whitley MD Face to face encounter, data reviewed, discussed with Miguel Stafford on 02/07/19. I agree with the above assessment and plan of care. cc: KADEEM Ramirez MD [facility]
[2019-02-07 11:45] VITALS: BP 153/75
--- NOTE | 2019-02-07 13:33 | DISCHARGE SUMMARY ---
ADMISSION DATE: 02/01/2019 DISCHARGE DATE: 02/07/2019 CONSULTATIONS: 1. Dr. Estrada with General Surgery. 2. Dr. Whitley with Nephrology. 3. Dr. Andrés Dalton with Infectious Disease. PERTINENT PROCEDURES: 1. Abdomen and pelvis CT scan with pleural effusion, cholelithiasis, fatty infiltration of the liver, and cortical renal thinning. 2. Abdominal ultrasound that showed gallbladder packed with gallstones. 3. Laparoscopic cholecystectomy with Dr. Estrada. DISCHARGE DIAGNOSES: 1. Acute cholecystitis status post laparoscopic cholecystectomy by Dr. Estrada. 2. Klebsiella bacteremia originating from acute cholecystitis. The patient will be discharged on p.o. Levaquin for a total of 14 days. 3. End-stage renal disease on hemodialysis followed by Nephrology. Acid base remains in target. 4. Hypertension, controlled. 5. Diabetes mellitus type 2. Continue home regimen diabetic diet. HOSPITAL COURSE: Briefly, Mr. Moreira is a 68-year-old gentleman with a past medical history of end-stage renal disease on hemodialysis Thursday, , Thursday, diabetes mellitus type 2, and hypertension presented to the ED with complaining of fever, chills, and right upper quadrant pain. After his dialysis session, his pain continued to worsen. He came to the ED. Imaging done was suspicious for cholecystitis. Followup abdominal ultrasound showed her gallbladder packed with stones. He underwent laparoscopic cholecystectomy with Dr. Estrada. His blood cultures did grow out gram-negative rods. Dr. Andrés Dalton was brought on board. He had bacteremia with Klebsiella. His antibiotics were changed appropriately. He was continued on his hemodialysis throughout his admission. He has had a stable hospital course, and will be discharged on p.o. Levaquin per Dr. Dalton. VITAL SIGNS: Temperature 98.2 degrees, heart rate 75, respirations 20, blood pressure 140/70, and O2 is 95% on room air. DISCHARGE DIET: Diabetic. DISCHARGE MEDICATIONS: 1. ProAir inhaler 2 puffs inhaled q.4 hours. 2. Bromfed. 3. Sudafed DM syrup 10 mL p.o. q.8 hours p.r.n. 4. Xanax 1 mg p.o. b.i.d. 5. Atorvastatin calcium 80 mg p.o. daily. 6. Baclofen 10 mg p.o. t.i.d. p.r.n. 7. Aspirin 81 mg p.o. daily. 8. Dulera 200 mcg-5 mcg inhaler 2 puffs inhaled b.i.d. 9. Lasix 40 mg p.o. b.i.d. 10. [place] 7.5/325 1 tab p.o. b.i.d. p.r.n. 11. Lisinopril 10 mg p.o. daily. 12. Lopressor 25 mg p.o. b.i.d. 13. Novolin 70/30 20 units b.i.d. 14. PhosLo 667 mg capsules 3 capsules p.o. t.i.d. 15. Icar C 1 each p.o. b.i.d. 16. Nystatin 1000 units p.o. 4 times a day. 17. Prilosec 40 mg p.o. b.i.d. 18. Antibiotics per Dr. Andrés Dalton. FOLLOW-UP: Mr. Moreira will be discharged back home with self care. He is to take all antibiotics as prescribed. He is to continue with his regular scheduled hemodialysis. He has a followup appointment with Dr. Estrada on 02/15/[address] Andrés Dalton on 02/21/2019. He can return to the ED or call 911 for any worsening of symptoms. Dictated by KADEEM Batista for Ric Gaston MD cc: MD Krystle Potter MD Reginald D. Gladish, MD Jay Pohl, MD MTDD
[2019-02-07] MEDS ORDERED: MAXIPIME 1 GM in NS 50 ML IV ONE (15:00)
== END 2019-02-07 12:50 | disposition home health service (06) | DRG 853 ==
LOC: SUPCPDRO → ED 19:19 → 4N 23:13 → SUATTDRO 23:13 → 4N 23:45
PROVIDERS: ATTEND Internal Medicine
CPT/HCPCS: 51701; 71010; 71045; 74177; 76700; 80048; 80053; 82550; 82805; 82948; 83605; 83735; 84484; 85025; 85610; 85730; 87040; 87077; 87186; 88304; 93005; 94640; 94761; 94799; 96365; 96366; 96367; 97163; 99285; 99291; A9270; C1751; J0131; J0330; J0692; J0885; J1644; J2270; J2370; J2405; J2543; J3010; J3370; J7030; J7120; P9612; Q9966; Q9967; XXXXX